=== PATIENT | male | born 1965 | race Caucasian/White ===

== ENCOUNTER 2017-02-11 13:48 | Inpatient (IN) ==
[2017-02-11] MEDS ORDERED: SODIUM CHLORIDE 0.9% 1,000 ML IV STA (13:59)
[2017-02-11] MEDS ORDERED: HYDROmorphone 2 MG/1 ML VIAL IV STA (13:59)
[2017-02-11] MEDS ORDERED: ONDANSETRON 4 MG/2 ML VIAL IV STA (13:59)
--- NOTE | 2017-02-11 14:06 | Emergency Department Note ---
Arrival - Arrival ED Nursing Triage Note: c/o upper abd pain going into back. onset this am. pt ate hambutgers before going to bed last night. pt still has his gall bladder Mode of Arrival: Ambulatory Limitations: No Limitations Source: Patient, Significant other, RN Notes Reviewed - History of Present Illness Onset (ago): hour(s) (5.5) Consistency: constant Severity: moderate, severe Quality: cramping, stabbing, aching <Emmanuel Pink - Last Filed: 02/11/17 15:49> <Braden Barrios - Last Filed: 02/11/17 17:07> - Arrival Chief Complaint: Abdominal / Flank Pain Stated Complaint: Abd pain Time Seen by Provider: 02/11/17 13:59 - History of Present Illness HPI Narrative: Patient is a 51-year-old white male who is seen today with right upper quadrant and epigastric abdominal pain which began suddenly at about 930 this morning. Patient states he ate hamburger and homemade onion rings last night and noticed some "churning" in his stomach during the night. Pain began to appreciably worse at about 930. He has had some nausea but denies any vomiting. He states that 3 days ago he had some postprandial diarrhea. He denies any melena, hematochezia, or hematemesis. Patient denies any history of diabetes mellitus or hypertension. He no longer smokes cigarettes having quit 10 months ago. He occasionally drinks alcohol. He states that his pain is excruciating now and does not radiate. (Emmanuel Pink) Allergies/Adverse Reactions: Allergies Allergy/AdvReac Type Severity Reaction Status Date / Time No Known Allergies Allergy Unverified 02/11/17 13:54 Home Medications: Home Medications Medication Instructions Recorded Confirmed Type No Known Home Medications [No 02/11/17 02/11/17 History Known Home Medications] Review of System - Review of System 12 point system: reviewed and no additional remarkable complaints except as stated - Review of System Constitutional: Absent: chills, diaphoresis, fever Respiratory: Absent: cough, respiratory distress, wheezing Cardiovascular: Absent: chest pain, palpitations Gastrointestinal: Present: as per HPI, abdominal pain, nausea. Absent: vomiting , diarrhea, constipation, hematemesis, melena, hematochezia Genitourinary male: Absent: urgency, dysuria, hematuria <Emmanuel Pink - Last Filed: 02/11/17 15:49> Medical,Surgical,& Family Hx - Medical History Musculoskeletal: History of: Musculoskeletal Problems (bilateral knee replacements and hip replacements) - Social History Smoking Status: Former smoker Frequency of Alcohol Use: None Type of Drug Use: None Marital Status: Lives With:: Spouse Functional capacity: independent ambulation <Emmanuel iPnk - Last Filed: 02/11/17 15:49> Exam <Emmanuel Pink - Last Filed: 02/11/17 15:49> <Braden Barrios - Last Filed: 02/11/17 17:07> Vital Signs: Vital Signs Temperature 97.9 F 02/11/17 13:50 Pulse Rate 64 02/11/17 15:31 Respiratory Rate 19 02/11/17 15:31 Blood Pressure 150/73 02/11/17 15:31 O2 Sat by Pulse Oximetry 97 02/11/17 15:31 GENERAL: This is a well-nourished well-developed white male obese in no apparent distress. VITAL SIGNS: Reviewed HEENT: Head is atraumatic and normocephalic. Pupils are equal round react to light. Extraocular movements are intact. Oropharynx is benign with moist mucous membranes. NECK: Neck is soft and supple without tenderness. There are no masses. There is no lymphadenopathy. LUNGS: Lungs are clear to auscultation. Chest rises symmetrically. There is no chest wall tenderness. CV: Heart is regular rate and rhythm without murmurs rubs or gallops. ABDOMEN: Abdomen is soft, tender to palpation in the right upper quadrant and epigastrium with positive Oates sign and associated guarding. There are no abdominal abnormal masses palpated. There is no organomegaly. Bowel sounds are hypoactive. SKIN: Skin is warm and dry. No rash. EXTREMITIES: Patient has full range of motion without tenderness. There is no pedal edema. NEUROLOGIC: Awake alert and oriented 4. Cranial nerves II through XII are grossly intact. Motor is 5 over 5 in all extremities bilaterally. (Emmanuel Pink) Course <Emmanuel Pink - Last Filed: 02/11/17 15:49> - Consultations Time: 17:06 <Braden Barrios - Last Filed: 02/11/17 17:07> Course Narrative: Care is transferred to Dr. Barrios at 4 PM. The patient is to undergo CT scan of the abdomen with oral and IV contrast. (Emmanuel Pink) - Consultations Consultation #1: Dr. Mckeon was consulted general surgeon he said to admit the patient to him order a HIDA scan in the morning (Braden Barrios) Results - Labs CBC & BMP: 02/11/17 14:27 02/11/17 14:27 Lab Results: I have reviewed the patients labs - EKG EKG results: interpreted by ERMD - Diagnostic Findings Procedure: Abdominal x-ray: image reviewed by me (Nonspecific gas pattern, no free air, gas in the rectum.), Chest x-ray: image reviewed by me (No cardiomegaly, no pleural effusions, no infiltrates.), Ultrasound: report reviewed by me (Normal gallbladder ultrasound) <Emmanuel Pink - Last Filed: 02/11/17 15:49> - Labs CBC & BMP: 02/11/17 14:27 02/11/17 14:27 <Braden Barrios - Last Filed: 02/11/17 17:07> Disposition <Emmanuel Pink - Last Filed: 02/11/17 15:49> Case discussed with: patient, patient's family Time of Disposition: 17:06 <Braden Barrios - Last Filed: 02/11/17 17:07> Clinical Impression: Right upper quadrant abdominal pain, Abdominal pain, Biliary colic Disposition: Still a Patient Condition: Stable
[2017-02-11] MEDS ORDERED: ONDANSETRON 4 MG/2 ML VIAL ONE (14:29)
--- NOTE | 2017-02-11 14:29 | XRay Report ---
Referring Physician: Emmanuel Pink Exam: XR chest 1V portable Date: February 11, 2017 at 2:13 PM Reason: Generalized abdominal pain Comparison: None Findings: The cardiac silhouette is normal in size. No focal consolidation, pneumothorax or pleural effusion is identified. No acute osseous process is seen. Impression: No acute cardiopulmonary process is identified. PROCEDURE INTERPRETED AT [facility] DEPARTMENT OF RADIOLOGY Final Report Signed by: Dr. Magdalena Colon
[2017-02-11] MEDS ORDERED: HYDROmorphone 2 MG/1 ML VIAL ONE (14:30)
--- NOTE | 2017-02-11 14:30 | XRay Report ---
XR abdomen 2V Clinical Information: Right upper quadrant abdominal pain Comparison: None Findings: Bowel gas pattern is nonspecific and within normal limits. No abnormally dilated small bowel loops are identified to suggest obstruction. There is no free air identified. Scattered fecal material is noted throughout colon, which is otherwise nondilated. No abnormal focal soft tissue masses or calcific densities are identified in the abdomen or pelvis. Lung bases appear predominantly clear. There is no acute osseous abnormality. No suspicious osseous lesions are identified. Plate and screw hardware is noted along the left iliac bone/acetabulum, which appears intact. Advanced degenerative changes at the left hip joint are noted. Impression: No acute radiographic abnormality in the abdomen. A mild degree of fecal stasis/constipation is suspected. Advanced degenerative changes at the left hip joint. PROCEDURE INTERPRETED AT [facility] [place] DEPARTMENT OF RADIOLOGY Final Report Signed by: Thierry Menjivar
[2017-02-11 14:37] LABS: Basophils # 0.1 10*3/uL (0.0-0.2); Basophils % 0.7 % (0.0-0.8); Eosinophils # 0.2 10*3/uL (0.0-0.87); Eosinophils % 1.6 % (0.00-10.9); Hematocrit 46.4 VOL% (42.0-52.0); Hemoglobin 15.5 GM/DL (14.0-18.0); Immature Granulocytes % 0.6 %; Immature Granulocytes Absolute 0.06 #; Lymphocytes % 9.7 % (21.2-54.2); Mean Corpuscular HGB Conc 33.4 GM/DL (32-36); Mean Corpuscular Hemoglobin 30 PG (27-34); Mean Corpuscular Volume 89.4 FL (87-102); Mean Platelet Volume 10.9 FL (9.6-12.0); Monocytes # 0.7 10*3/uL (0.11-0.8); Monocytes % 6.8 % (1.7-12.7); Neutrophils # 8.6 10*3/uL (1.4-7.4); Neutrophils % 80.6 % (38.7-73.9); Platelet Count 210 T/CUMM (130-400); Red Blood Count 5.19 MC/CUMM (3.8-5.5); White Blood Count 10.6 T/CUMM (4-12)
[2017-02-11 15:04] LABS: Bilirubin,Total 0.4 MG/DL (0.2-1.0); Magnesium 2.1 MG/DL (1.8-2.4); Osmolality,Calculated 279.5 MOS/KG (273-304); Potassium 4.3 MMOL/L (3.5-5.1); Total Protein 7.8 G/DL (6.4-8.3)
--- NOTE | 2017-02-11 15:05 | Ultrasound Report ---
Right upper quadrant ultrasound Indication: Abdominal Pain Findings: The liver is normal in size and echogenicity. The gallbladder has multiple mobile calculi present. The gallbladder wall thickness is 4.3 mm . The common bile duct measures 4.8 mm. The visualized portion of the pancreas appear within normal limits The right kidney is normal in size and echogenicity and measures 12.2 cm . No free fluid or free air seen. Impression: No evidence of abnormality demonstrated. Ultrasound images stored and captured. PROCEDURE INTERPRETED AT [facility] DEPARTMENT OF RADIOLOGY Final Report Signed by: Dr. Rg Hogan
[2017-02-11 15:43] LABS: Apearance,Urine CLEAR (Clear); Bilirubin,Urine Negative (Negative); Blood, Urine Negative (Negative); Glucose,Urine (UA) Negative (Negative); Ketones,Urine Negative (Negative); Mucus,Urine Occasional /LPF (Occasional); Nitrite,Urine Negative (Negative); Protein,Urine 30 MG/DL; RBC,Urine <1 /HPF (0-4); Urine Color Yellow (Yellow); Urine Specific Gravity 1.016 (1.001-1.035); Urine Urobilinogen < 2.0 EU/DL (0.2-1.0); WBC,Urine 1 /HPF (0-6)
--- NOTE | 2017-02-11 16:48 | CT Report ---
CT abdomen pelvis Indication: Abdominal pain Comparison: None available Technique: Axial CT imaging of the abdomen and pelvis is performed with intravenous and oral contrast. Contrast dose is 100 cc of Omnipaque 350. Findings: Cardiac and lung bases are within normal limits CT abdomen: The liver is diffusely decreased in density spleen pancreas and adrenal glands are normal in size and enhancement. No evidence of focal lesion is demonstrated in these solid organs. Multiple calculi with lucent centers are seen within the gallbladder. Gallbladder slightly distended. Kidneys are normal in size. Multiple simple appearing cyst are present on the kidneys, the largest on the left is estimated 5.4 cm in size. No evidence of hydronephrosis or nephrolithiasis is seen. The bowel caliber is normal and no wall thickening or adjacent inflammatory change is seen. No evidence of free fluid or free air is present. CT pelvis: The pelvic bowel appears within normal limits. Bladder shows no evidence of abnormality. The pelvic organs show no evidence of abnormality. Previous internal fixation of left acetabular fractures are present and there is severe left hip osteoarthrosis. Impression: Cholelithiasis with distended gallbladder. Ultrasound may be useful to evaluate for cholecystitis. No other acute findings seen. This CT exam was performed using one or more the following dose reduction techniques: Automated exposure control, adjustment of the MA and/or KV according to patient size, or use of iterative reconstruction technique. PROCEDURE INTERPRETED AT [facility] DEPARTMENT OF RADIOLOGY Final Report Signed by: Dr. Rg Hogan
[2017-02-11] MEDS ORDERED: ACETAMINOPHEN 325 MG TABLET PO PRN (18:11)
[2017-02-11] MEDS ORDERED: ONDANSETRON 4 MG/2 ML VIAL IV PRN (18:11)
[2017-02-11] MEDS ORDERED: HYDROmorphone 2 MG/1 ML VIAL IV PRN (18:11)
[2017-02-11] MEDS: SODIUM CHLORIDE 0.9% 1,000 ML IV SCH (20:24)
[2017-02-12 06:27] LABS: Apearance,Urine CLEAR (Clear); Bilirubin,Urine Negative (Negative); Blood, Urine Negative (Negative); Glucose,Urine (UA) Negative (Negative); Ketones,Urine Negative (Negative); Mucus,Urine Occasional /LPF (Occasional); Nitrite,Urine Negative (Negative); Protein,Urine Negative; RBC,Urine 1 /HPF (0-4); Squamous Epithelial Cell,Urine Occasional /HPF (0-10); Urine Color Yellow (Yellow); Urine Urobilinogen < 2.0 EU/DL (0.2-1.0); WBC,Urine 2 /HPF (0-6)
--- NOTE | 2017-02-12 08:16 | XRay Report ---
Exam: XR abdomen 2V Date: 02/12/2017 4:00 AM Indication: Abdominal pain Comparison: None Technical: Supine and erect imaging Findings: Minimal scarring in the lung bases. Degenerative spondylosis change present thoracic spine. Previous left acetabular pinning with degenerative arthritic changes of the left hip. Some contrast or debris inspissated mucus in the colon throughout. Phleboliths are present. Injection granulomas are present. The liver spleen and renal shadows are mostly obscured. No obvious pneumoperitoneum. Impression: 1. Degenerative arthritic changes of the left hip with previous acetabular injury with side plate and screws. A component of osteonecrosis of the femoral head cannot be excluded 2. Degenerative changes thoracolumbar spine 3. Nonspecific GI pattern. PROCEDURE INTERPRETED AT [facility] DEPARTMENT OF RADIOLOGY Final Report Signed by: Dr. King Arechiga
--- NOTE | 2017-02-12 08:26 | Nuclear Medicine Report ---
Referring physician: Shaun Mckeon Exam: Nuclear medicine hepatobiliary scan Date: February 12, 2017 Comparison: Gallbladder ultrasound February 11, 2017, CT abdomen and pelvis February 11, 2017 Reason: Biliary colic Technique: The patient was administered 5 mCi of technetium 99m Choletec IV. Images of the right upper quadrant were then acquired over 90 minutes. Only static anterior images of the abdomen at 60 minutes and 90 minutes could be obtained due to severe patient discomfort. Findings: Normal hepatic uptake and excretion of radiotracer are observed. There is radiotracer activity within the bowel at 60 minutes. However, no radiotracer activity is seen within the gallbladder at 90 minutes. Impression: No radiotracer activity is seen within the gallbladder at 90 minutes, but there is radiotracer activity within the bowel. Gallstones were seen on a recent gallbladder ultrasound, and this is concerning for acute cholecystitis. Findings were discussed with Dr. Mckeon on February 12, 2017 at 8:23 AM. This is a critical test. PROCEDURE INTERPRETED AT [facility] DEPARTMENT OF RADIOLOGY Final Report Signed by: Dr. Magdalena Colon
--- NOTE | 2017-02-12 09:18 | General Surg History&Physical ---
Assessment and Plan - Time spent with patient Time spent with patient: Greater than 30 minutes (1) Acute calculous cholecystitis Status: Acute Assessment and plan: The indications for surgery as well as the alternative treatment options were reviewed with the patient. The risk of surgery were reviewed including but not limited to infection, bleeding which could require transfusion, blood vessel injury, nerve injury, bowel or other organ injury, reactions to medications, the need for additional procedures, postoperative ileus and/or diarrhea. We discussed the procedure was planned to be laparoscopic but may be converted open pending the medical necessity as deemed appropriate by the surgeon. Anesthesia risks were additionally reviewed including but not limited to heart attack, stroke, pneumothorax, hemothorax, pneumonia, difficulty with extubation , and other unforeseeable cardiac, neurologic, or pulmonary complications including the rare event of . Patient expresses understanding of these risks and agrees to proceed with surgical intervention today with Dr. Shaun Mckeon. Current Visit: Yes (2) Creatinine elevation Status: Acute Assessment and plan: CKD versus AK. Will monitor labs and renally dose medications. Patient with incidental finding of cystic kidneys. Will recommend follow-up as warranted based on clinical course. Current Visit: Yes History of Present Illness Chief complaint: RUQ pain History of present illness: Mr. Mendez is a 51 year old male who presents to the emergency department department overnight with sudden onset of right upper quadrant pain yesterday morning. This pain was persistent throughout the day moderate to severe in nature and aching. Patient reports associated nausea and difficulty with tolerating oral intake, but no vomiting or diarrhea. He had no fever, chills, myalgias or arthralgias. Similar episodes which were less intense in the past. No history of significant GI issues/surgeries. Home Medications Medication Instructions Recorded Confirmed Type No Known Home Medications [No 02/11/17 02/12/17 History Known Home Medications] Allergies Allergy/AdvReac Type Severity Reaction Status Date / Time No Known Allergies Allergy Unverified 02/11/17 13:54 Medical,Surgical,& Family Hx - Medical History Cardio: No history of: CAD, Hypertension Neurology: No history of: Seizures HEENT: History of: Eye Problem (glasses) Endocrine: No history of: Diabetes Mellitus (NIDDM), Thyroid Disorder Respiratory: No history of: COPD Gastrointestinal: No history of: Gastrointestinal Bleed, GI Problems Musculoskeletal: History of: Musculoskeletal Problems (bilateral knee replacements and hip replacements) Hematology: No history of: Anemia Other: History of: Miscellaneous Medical Problems (Hepatitis as a child due to "outbreak at school." 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) - Surgical History Neurologic Surgeries: Patient denies: Neurologic Surgery HEENT Surgeries: Surgical HX of: Tonsilectomy & Adenoidectomy Abdominal Surgeries: Patient denies: Abdominal Surgery Orthopedic Surgeries: Surgical HX of;: Orthopedic Surgery (left pinky finger) - Family History Family History: Reports;: Family Cancer (dad, sister), Family Heart Disease ( brother), Family Hypertension (sister) - Social History Smoking Status: Former smoker Have you smoked in the last 12 months: Yes Frequency of Alcohol Use: Occasionally (2d/week) Type of Drug Use: None Marital Status: Functional capacity: independent ambulation Exam - Constitutional Vitals: Period Temp Pulse Resp BP Sys/Palmer Pulse Ox Last 24 Hr 98.4 F-98.7 F 71-79 18-20 108-146/67-75 93-97 General appearance: no acute distress, over weight - Head Head exam: Present: normal inspection, normocephalic, atraumatic - Eye Eye exam: Present: EOMI. Absent: conjunctival injection, scleral icterus - Neck Neck exam: Present: normal inspection, trachea midline - Respiratory Respiratory exam: Present: clear to auscultation bilaterally. Absent: rales, rhonchi, wheezes - Cardiovascular Cardiovascular exam: Present: RRR - GI/Abdominal GI/Abdominal exam: Present: hypoactive bowel sounds, Oates's sign, tenderness ( RUQ), soft. Absent: distended, guarding - Extremities Exam Extremities exam: Absent: calf tenderness, edema - Neurological Exam Neurological exam: Present: alert, oriented X3 Speech: Present: normal - Skin Skin exam: Present: normal color, warm - Constitutional Constitutional: Absent: chills, fever(s) - Cardiovascular Cardiovascular: Absent: chest pain at rest, dyspnea on exertion, orthopnea - Respiratory Respiratory: Absent: cough, hemoptysis, wheezing - Gastrointestinal Gastrointestinal: Present: as per HPI. Absent: odynophagia, jaundice - Genitourinary Genitourinary: Absent: dysuria, flank pain, hematuria - Musculoskeletal Musculoskeletal: Present: other (chronic left hip pain) - Neurological Neurological: Absent: focal weakness, headache(s), memory loss - Endocrine Endocrine: Absent: cold intolerance, heat intolerance Hematologic/Lymphatic: Absent: easy bleeding, easy bruising Results - Labs CBC & BMP: 02/11/17 14:27 02/11/17 14:27 - Impressions HIDA - no tracer in GB after 90 minutes; known cholelithiasis - signs indicative of acute cholecystitis - Diagnostic Findings Procedure: Chest x-ray: report reviewed by me (No acute pulmonary disease noted) , KUB x-ray: report reviewed by me (No acute GI process noted), CT Abdomen and Pelvis: report reviewed by me (cholelithiasis noted with distended GB; renal cysts noted incidentally), Ultrasound: report reviewed by me (cholelithiasis noted; no CBD distension)
[2017-02-12 09:40] LABS: Basophils # 0.1 10*3/uL (0.0-0.2); Basophils % 0.4 % (0.0-0.8); Eosinophils # 0.2 10*3/uL (0.0-0.87); Eosinophils % 1.7 % (0.00-10.9); Hematocrit 42.6 VOL% (42.0-52.0); Hemoglobin 14.3 GM/DL (14.0-18.0); Immature Granulocytes % 0.5 %; Immature Granulocytes Absolute 0.07 #; Lymphocytes # 1.2 10*3/uL (1.4-4.0); Lymphocytes % 8.7 % (21.2-54.2); Mean Corpuscular HGB Conc 33.6 GM/DL (32-36); Mean Corpuscular Hemoglobin 30 PG (27-34); Mean Corpuscular Volume 89.7 FL (87-102); Mean Platelet Volume 11.3 FL (9.6-12.0); Monocytes # 1.4 10*3/uL (0.11-0.8); Monocytes % 10.3 % (1.7-12.7); Neutrophils # 10.8 10*3/uL (1.4-7.4); Neutrophils % 78.4 % (38.7-73.9); Platelet Count 188 T/CUMM (130-400); Red Blood Count 4.75 MC/CUMM (3.8-5.5); Red Cell Distribution Width 14.3 % (9.3-17.3); White Blood Count 13.8 T/CUMM (4-12)
[2017-02-12 10:22] LABS: Albumin 3.5 G/DL (3.4-5.0); Bilirubin,Total 1.2 MG/DL (0.2-1.0); Calcium 8.2 MG/DL (8.5-10.1); Magnesium 1.9 MG/DL (1.8-2.4); Osmolality,Calculated 273.8 MOS/KG (273-304); Potassium 4.1 MMOL/L (3.5-5.1); Total Protein 6.9 G/DL (6.4-8.3)
[2017-02-12] MEDS ORDERED: FAMOTIDINE 20 MG TABLET PO ONE (10:33)
[2017-02-12] MEDS ORDERED: LORazepam 1 MG TABLET PO ONE (10:33)
[2017-02-12] MEDS: PANTOPRAZOLE 40 MG VIAL IV SCH (11:00)
[2017-02-12] MEDS: HEPARIN 5,000 UNIT/1 ML VIAL SUBCUT SCH ×2 (11:00→18:25)
[2017-02-12] MEDS ORDERED: ENOXAPARIN 40 MG/0.4 ML SYRINGE SUBCUT SCH (11:10)
[2017-02-12 12:51] LABS: Hepatitis A Ab IgM Result Negative (Negative); Hepatitis B Core IgM Quant 0.17 Index; Hepatitis B Core IgM Result Negative (Negative); Hepatitis B Surface Ag Quant < 0.10 Index; Hepatitis B Surface Ag Result Negative (Negative); Hepatitis C Virus Ab Quant 0.15 Index; Hepatitis C Virus Ab Result Negative (Negative)
[2017-02-12] MEDS ORDERED: BUPIVACAINE MPF 0.25% /EPI 30 ML VIAL ONE (13:23)
[2017-02-12] MEDS ORDERED: LIDOCAINE 2%/EPI 20 ML VIAL ONE (13:23)
[2017-02-12] MEDS ORDERED: TISSUE ADHESIVE 1 EACH APPLICATOR TOP ONE (13:23)
--- NOTE | 2017-02-12 15:38 | Fluoroscopy Report ---
Exam: [place] cholangiogram in surgery Date: 02/12/2017 Indication: Pain cholecystectomy Comparison: CT and gallbladder sonogram 02/11/2017 and hepatobiliary imaging 02/12/2017. Findings: 42 images were obtained in the operating suite with 34.6 seconds fluoroscopy time provided to Dr. Sharma. Cystic duct was cannulated. The left and right biliary radicals are demonstrated. Small defect is present in the bile duct. Contrast flows rapidly into the duodenum through the ampulla. Approximately 10 cc of contrast utilized. Impression: 1. No obvious bile duct dilatation with the small defect could represent balloon or air bubble or stone, not otherwise clarified in the CBD. No obvious dilatation of the bile duct is noted. Surgical instrumentation is present. PROCEDURE INTERPRETED AT [facility] DEPARTMENT OF RADIOLOGY Final Report Signed by: Dr. King Arechiga
--- NOTE | 2017-02-12 16:01 | Operative Note ---
Date of procedure: 02/12/17 Pre-op diagnosis: acute cholecystitis Post-op diagnosis: same Procedure: Procedure performed: Laparoscopic cholecystectomy with intraoperative cholangiogram #2 supervision and interpretation of fluoroscopy Procedure in detail: After informed consent was obtained, the patient was taken operating suite and laid supine on the operating table. After general anesthesia was induced the abdomen was prepped and draped in usual sterile fashion. After procedural pause local anesthetic and straighten the skin and subcutaneous tissue above the umbilicus. Incision was made and dissection carried down through skin and soft tissue. Fascia identified and grasped with Vitaliy's and elevated. Fascia appeared somewhat attenuated. Fascial incision was made and the abdominal cavity was entered bluntly. Finger sweep revealed no adhesions. El trocar placed under visualization. Pneumoperitoneum achieved. The camera inserted. Bowel and mesentery inspected found be free of any violation. Next the patient was placed in reverse Trendelenburg position and rotated to the left. 25 mm trochars were placed the right upper quadrant and an 11 mm subxiphoid trocar was placed under visualization. Gallbladder identified it was acutely edematous and have the appearance of acute cholecystitis. It was grasped and retracted superiorly. I swept away the blunt adhesions off the gallbladder wall down to the infundibulum. Infundibulum was retracted toward the right hip. There is still a lot of omentum and fatty tissue in the way and another 5 mm trocar was placed the right upper quadrant and a family blade used to retract this tissue out of the way. Dissection was carried out from a lateral to medial approach and the triangle of [place] on the cystic duct and cystic artery were identified and isolated. Cystic artery was in the way of fully dissecting the cystic duct to get clips around it and I therefore transected the cystic artery high up on the gallbladder wall after clipping it. A clip was then able to be placed in the junction of the cystic duct neck of the gallbladder and partial transection might on the cystic duct. Plan to cath inserted and secured in place intraoperative glandular and performed. Cystic duct common bile duct intra-and extrahepatic ducts all filled. There were a few very small filling defects the coalescent suspected to be air. They eventually flushed. Contrast was seen entering the small bowel. The cholangiocatheter was removed and 2 clips were placed on the cystic duct just distal to the partial transection and the transection completed. The gallbladder was then removed from the gallbladder fossa using hook cautery and placed in an Endo Catch sac and removed through the El trocar site. Gallbladder had very large gallstones present. There were much larger than the filling defects on the cholangiogram. El trocar was replaced and pneumoperitoneum reachieved. Right upper quadrant thoroughly irrigated and suction. There was some mild oozing on the gallbladder fossa wall controlled with spot electrocautery. Irrigant remained clear. A placed a piece of Surgicel on the gallbladder fossa wall. The trochars were removed as the abdomen was desufflated. Fascia at the El trocar site closed using 0 Vicryl [id number]-sl-socct interrupted suture. Wounds were thoroughly irrigated and suction. His good hemostasis and the incisions closed with samia. Sterile dressings were applied. Patient was explained taken recovery room in stable condition. All lap and needle counts correct at the end the case. Anesthesia: MARY GRACEA Surgeon / Physician: Shaun Mckeon Estimated blood loss: other (approximately 25-50 mL) Specimens: other (gallbladder) Condition: stable Disposition: PACU Results - Labs CBC & BMP: 02/12/17 09:12 02/12/17 09:12 Discharge Plan - Discharge Medications No Action No Known Home Medications [No Known Home Medications] - Follow Up or Referral - Forms/Instructions
[2017-02-12] MEDS ORDERED: PROPOFOL 200 MG/20 ML VIAL IV ONE (16:13)
[2017-02-12] MEDS ORDERED: SEVOFLURANE 1 UNIT/15 MINUTE INH ONE (16:14)
[2017-02-12] MEDS ORDERED: MIDAZOLAM 2 MG/2 ML VIAL ONE (16:14)
[2017-02-12] MEDS ORDERED: GLYCOPYRROLATE 0.4 MG/2 ML VIAL ONE (16:15)
[2017-02-12] MEDS ORDERED: NEOSTIGMINE 10 MG/10 ML VIAL ONE (16:15)
[2017-02-12] MEDS ORDERED: SUCCINYLCHOLINE 200 MG/10 ML VIAL ONE (16:15)
[2017-02-12] MEDS ORDERED: ONDANSETRON 4 MG/2 ML VIAL ONE (16:15)
[2017-02-12] MEDS ORDERED: KETOROLAC 30 MG/1 ML VIAL ONE (16:15)
[2017-02-12] MEDS ORDERED: ROCURONIUM 100 MG/10 ML VIAL IV ONE (16:15)
--- NOTE | 2017-02-12 17:51 | Anesthesia ---
Anesthesia Post OP - Post Ansesthetic Evaluation Patient seen in post op: Yes Resp: within normal limits CV: within normal limits Mental: within normal limits Temp: within normal limits [id number]: within normal limits Nausea and Vomiting: within normal limits Pain: within normal limits
[2017-02-12] MEDS: SODIUM CHLORIDE 0.9% 1,000 ML IV SCH ×2 (20:29→22:10)
[2017-02-13] MEDS: HEPARIN 5,000 UNIT/1 ML VIAL SUBCUT SCH ×2 (01:31→08:36)
[2017-02-13] MEDS: PANTOPRAZOLE 40 MG VIAL IV SCH (08:40)
[2017-02-13 11:58] VITALS: BP 123/62
--- NOTE | 2017-02-13 13:37 | Discharge Summary ---
Hospital Course - Hospital Course Hospital Course: The patient is a 51-year-old male admitted for evaluation and treatment of right upper quadrant pain. Skin confirmed cholecystitis for which she underwent laparoscopic cholecystectomy with cholangiogram. Postoperatively, the patient's pain was well controlled, he tolerated oral intake without difficulty, he voids without difficulty, had positive flatus without bowel movement, and was ambulatory without complication. No palpitations noted throughout the stay. Diagnosis - Discharge Diagnosis (1) Acute calculous cholecystitis Status: Acute (2) Creatinine elevation Status: Acute Specialty Discharge - Follow Up or Referrals Follow up with: Shaun Mckeon MD [Physician] - 02/19/17 10:45 am Discharge Plan - Discharge Data Condition at Discharge: Stable Discharge Diet: advance to your usual diet, low fat, low cholesterol Activity: resume usual activities as tolerated Hygiene: may shower Driving: other (No driving while taking narcotics) Contact your physician if you experience:: fever over 101, Difficulty voiding, Redness or swelling, Nausea/Vomiting, Shortness of breath, Bleeding, pain uncontrolled by pain medications Wound / Dressing Care Instructions: Keep surgical incisions clean, dry and covered. - Discharge Medications Continue HYDROcodone/ACETAMIN 7.5-325 [Manson 7.5-325] 1 tablet PO Q4H PRN #30 tablet PRN Reason: Pain Moderate To Severe (4-10) - Follow Up or Referral Follow Up: Shaun Mckeon MD [Physician] - 02/19/17 10:45 am - Forms/Instructions Instructions: Laparoscopic Cholecystectomy (DC) Exam - Constitutional Vitals: Period Temp Pulse Resp BP Sys/Palmer Pulse Ox Last 24 Hr 97.6 F-98.9 F 77-93 16-24 92-139/45-92 92-99 General appearance: no acute distress, morbidly obese - Head Head exam: Present: normal inspection, normocephalic, atraumatic - Eye Eye exam: Absent: conjunctival injection, scleral icterus - Respiratory Respiratory exam: Present: clear to auscultation bilaterally - Cardiovascular Cardiovascular exam: Present: regular rate and rhythm - GI/Abdominal GI/Abdominal exam: Present: normal bowel sounds, soft, other (Appropriate p/o tenderness without guarding or rigidity. Surgical incisions c/d/i with samia intact. ). Absent: distended - Neurological Exam Neurological exam: Present: alert, oriented X3 - Psychiatric Psychiatric exam: Present: normal affect, normal mood - Skin Skin exam: Present: normal color, warm Discharge Results Procedures and tests throughout hospitalization: HIDA scan with evidence of acute choleycystitis. 1. Laporoscopic cholecystectomy. 2. Cholangiogram - Imaging and Cardiology Procedure: Abdominal x-ray: report reviewed by me, CT Abdomen and Pelvis: report reviewed by me, Ultrasound: report reviewed by me DS: Provider Date of admission: 02/11/17 17:08 Primary care physician: . No PCP Attending physician on admission: Shaun Mckeon MD Consults: 02/11/17 18:18 Consult to Pharmacy [CONS] Routine Reason for Pharmacy Consult: Adjust Meds Renal Funct Discharging clinician: Valencia Nye PA-C
--- NOTE | 2017-02-14 12:18 | Pathology Report from [facility] ---
ACCESSION # : [id number] PATIENT NAME : Braden Mendez ORDERING DR : Shaun Mckeon MD CLINICAL HX: Cholecystitis POST-OP DX: Same SPECIMEN INFO: Gallbladder GROSS DESCRIPTION: Received in formalin labeled "BRADEN MENDEZ" is an open gallbladder measuring 10.5 x 3.5 cm. The serosa is smooth and erythematous. The gallbladder wall measures 0.3 cm. The mucosal surface is velvety and red tinged with four brown black stones measuring up to 2.4 cm. Pairer sections are submitted in one cassette. DIAGNOSIS FOR BRADEN MENDEZ: GALLBLADDER: Chronic cholecystitis. Cholelithiasis. No evidence of malignancy. SERVICE DATE: 02/13/2017 REPORT DATE: 02/14/2017 PATHOLOGIST: Jose Alfredo Bolaños III, M.D. MTDD
== END 2017-02-13 14:40 | disposition home or self-care (01) | DRG 418 ==
LOC: N.ED 13:48 → N.EDINP 17:08 → N.3E 17:27
PROVIDERS: ADMIT Surgery; ATTEND Surgery
PROC: LAPCHOL (2017-02-12 14:14)

== ENCOUNTER 2019-07-07 20:05 | Observation (INO) ==
[2019-07-07] MEDS ORDERED: ASPIRIN 325 MG TABLET PO STA (22:41)
[2019-07-07] MEDS ORDERED: ONDANSETRON 4 MG/2 ML VIAL IV STA (22:41)
[2019-07-07] MEDS ORDERED: ALUM/MAG/SIMETH/LIDO VISC 1:1 30 ML BOTTLE PO STA (22:41)
[2019-07-07] MEDS ORDERED: NITROGLYCERIN 2% OINT 1 INCH/GM PACK TOP STA (22:41)
[2019-07-07 23:19] LABS: Basophils # 0.1 10*3/uL (0.0-0.2); Basophils % 0.6 % (0.0-0.8); Eosinophils # 0.2 10*3/uL (0.0-0.87); Eosinophils % 1.8 % (0.00-10.9); Hematocrit 44.4 VOL% (42.0-52.0); Hemoglobin 14.6 GM/DL (14.0-18.0); Immature Granulocytes % 0.8 %; Immature Granulocytes Absolute 0.11 #; Lymphocytes # 1.8 10*3/uL (1.4-4.0); Lymphocytes % 13.6 % (21.2-54.2); Mean Corpuscular HGB Conc 32.9 GM/DL (32-36); Mean Corpuscular Volume 92.1 FL (87-102); Mean Platelet Volume 11.4 FL (9.6-12.0); Neutrophils % 74.2 % (38.7-73.9); Platelet Count 218 T/CUMM (130-400); Red Blood Count 4.82 MC/CUMM (3.8-5.5); Red Cell Distribution Width 14.4 % (9.3-17.3); White Blood Count 13.5 T/CUMM (4-12)
[2019-07-07 23:50] LABS: Albumin 3.8 G/DL (3.4-5.0); Bilirubin,Total 0.4 MG/DL (0.2-1.0); Calcium 9.4 MG/DL (8.5-10.1); Osmolality,Calculated 288.8 MOS/KG (273-304); Total Protein 7.6 G/DL (6.4-8.3)
[2019-07-08] MEDS ORDERED: ONDANSETRON 4 MG/2 ML VIAL IV PRN (01:04)
[2019-07-08] MEDS: NITROGLYCERIN 2% OINT 1 INCH/GM PACK TOP SCH ×2 (06:45→13:25)
[2019-07-08 07:13] LABS: Basophils # 0.1 10*3/uL (0.0-0.2); Basophils % 0.8 % (0.0-0.8); Eosinophils # 0.3 10*3/uL (0.0-0.87); Hematocrit 38.8 VOL% (42.0-52.0); Hemoglobin 12.9 GM/DL (14.0-18.0); Immature Granulocytes % 0.9 %; Immature Granulocytes Absolute 0.08 #; Lymphocytes # 1.9 10*3/uL (1.4-4.0); Lymphocytes % 20.5 % (21.2-54.2); Mean Corpuscular HGB Conc 33.2 GM/DL (32-36); Mean Corpuscular Volume 93.3 FL (87-102); Mean Platelet Volume 11.5 FL (9.6-12.0); Monocytes % 10.8 % (1.7-12.7); Platelet Count 183 T/CUMM (130-400); Red Blood Count 4.16 MC/CUMM (3.8-5.5); Red Cell Distribution Width 14.6 % (9.3-17.3); White Blood Count 9.1 T/CUMM (4-12)
[2019-07-08 07:45] LABS: Calcium 8.8 MG/DL (8.5-10.1); Osmolality,Calculated 284.3 MOS/KG (273-304); Risk Ratio 3.72
[2019-07-08] MEDS ORDERED: ASPIRIN EC 325 MG TABLET PO SCH (09:00)
[2019-07-08] MEDS ORDERED: PANTOPRAZOLE 40 MG TABLET PO SCH (09:00)
[2019-07-08] MEDS ORDERED: REGADENOSON 0.4 MG/5 ML SYRINGE IV ONE (11:10)
[2019-07-08 16:26] VITALS: BP 137/80
[2019-07-08] MEDS ORDERED: MUPIROCIN 2% OINT 22 GM TUBE TOP SCH (21:00)
== END 2019-07-08 18:19 | disposition home or self-care (01) ==
LOC: N.EDINP 20:05 → N.ED 20:05 → N.EDINP 07-08 03:09 → N.TELEN 07-08 03:09
PROVIDERS: ADMIT Hospitalist; ATTEND Hospitalist